=== PATIENT | male | born 1995 | race Two or more races ===

== ENCOUNTER 2017-04-06 18:19 | Emergency (ER) | payer OTHER ==
[~2017-04-06] VITALS: Ht 188 cm; Wt 95.7 kg
== END 2017-04-06 20:40 | disposition home or self-care (01) ==
LOC: ER 18:19
DX: S52.571A Other intraarticular fracture of lower end of right radius, initial encounter for closed fracture (principal); W18.39XA Other fall on same level, initial encounter; Y93.67 Activity, basketball; Y92.89 Other specified places as the place of occurrence of the external cause; Y99.8 Other external cause status

== ENCOUNTER → 2017-04-16 | Day surgery (SDC) | payer OTHER ==
[~2017-04-16] MED LIST: ALEVE220 M1 PO; CEFADROXIL500 MG PO; PERCOCET 5-3251 EACH PO
== END | disposition home or self-care (01) ==
LOC: ADM 04-10 12:00 → CIR.AMB 04-14 12:00
DX: S52.571A Other intraarticular fracture of lower end of right radius, initial encounter for closed fracture (principal)
CPT/HCPCS: 25609; 25101; 20902; C1776

== ENCOUNTER → 2018-11-03 | Emergency (ER) | payer OTHER ==
[~2018-11-03] VITALS: Ht 188 cm; Wt 91.2 kg
[~2018-11-03] MED LIST changes: +DICLOFENAC SODI75 MG PO
== END | disposition left against medical advice (07) ==
LOC: ER 04:41
DX: Z53.20 Procedure and treatment not carried out because of patient's decision for unspecified reasons (principal)

== ENCOUNTER 2018-11-09 01:08 | Emergency (ER) | payer OTHER ==
[~2018-11-09] VITALS: Ht 188 cm; Wt 93.4 kg
[~2018-11-09 01:08] MED LIST changes: -DICLOFENAC SODI75 MG PO
[2018-11-09] MEDS ORDERED: DICLOFENAC SODI75 MG PO (02:37)
== END 2018-11-09 02:55 | disposition home or self-care (01) ==
LOC: ER 01:08
DX: M79.661 Pain in right lower leg (principal)